=== PATIENT | male | born 1945 | race Caucasian/White ===

== ENCOUNTER 2017-07-26 15:07 | Emergency (ER) | payer OTHER ==
[~2017-07-26] VITALS: Ht 170.2 cm; Wt 76.0 kg
[2017-07-26 15:15] VITALS: BP 129/81; PULSE 71; RESP 16; TEMP 98.8; O2SAT 100
[2017-07-26 15:46] LABS: BLOOD, URINE LARGE (NEG); GLUCOSE,URINE NEG (NEG); KETONE, URINE TRACE mg/dL (NEG); NITRITE,URINE POS (NEG); PH, URINE 6.5 (5.0-8.5); URINE LEUKOCYTE ESTERASE SMALL (NEG)
[2017-07-26] MEDS ORDERED: ALPR0.5T6 PO (15:46)
[2017-07-26] MEDS ORDERED: MIRA50TA PO (15:46)
[2017-07-26] MEDS ORDERED: TELM1TAB2 PO (15:46)
[2017-07-26] MEDS ORDERED: ATOR40TA16 PO (15:46)
[2017-07-26 15:55] LABS: BILIRUBIN, URINE NEG (NEG)
[2017-07-26 16:03] LABS: URINE COLOR BROWN (YELLW/STRAW)
[2017-07-26 16:04] LABS: RBC, URINE INNUM /hpf (0-3); WBC, URINE 15-19 /hpf (0-5)
[2017-07-26 16:05] LABS: AMORPHOUS SEDIMENT, URINE FEW; BACTERIA, URINE FEW /hpf; WHITE BLOOD CELL CLUMPS FEW
[2017-07-26] MEDS ORDERED: CIPR-9 PO (16:08)
--- NOTE | 2017-07-26 16:13 | PD ---
HPI Chief Complaint: Complaint Time Seen by Provider: 15:40 Travel History International Travel<30 days: No Contact w/Intl Traveler<30days: No Traveled to known affect area: No History of Present Illness HPI 72-year-old male that presents to the ED for evaluation of possible urinary infection. Per patient his been having 3 days of polyuria, dysuria and blood in the urine. Per patient he never had this before. No pain on the back or abdomen. Per patient only when he urinates he feels that he has to urinate a lot. Denies any fevers chills or sweats. No other medical issues. Per patient he has urologist [facility] that told him that he had problems with his prostate but currently takes no medications for this. It is any allergies to medication. Has not seen anybody for this. Pain per patient is 3 out of 10 and is burning. PFSH Past Medical History High Cholesterol: Yes Genitourinary: Yes (FREQUENCY, OAB) Hypertension: Yes Influenza Vaccination: Yes Past Surgical History Surgical History: No Previous Surgery Social History Alcohol Use: Yes (DAILY) Tobacco Use: No Substance Use: No Allergies-Medications (Allergen,Severity, Reaction): Coded Allergies: No Known Allergies (Unverified , 07/26/17) Reported Meds & Prescriptions Reported Meds & Active Scripts Active Cipro (Ciprofloxacin HCl) 500 Mg Tab 500 Mg PO BID 10 Days Reported Myrbetriq (Mirabegron) 50 Mg Tab 50 Mg PO DAILY Atorvastatin (Atorvastatin Calcium) 40 Mg Tab 40 Mg PO HS Telmisartan 80 Mg Tab 80 Mg PO DAILY Alprazolam ER 24 HR (Alprazolam) 0.5 Mg Tab 0.5 Mg PO DAILY Take tablet intact, preferably in the morning. Review of Systems Except as stated in HPI: all other systems reviewed are Neg Physical Exam Narrative GENERAL: SKIN: Warm and dry. HEAD: Atraumatic. Normocephalic. EYES: Pupils equal and round. No scleral icterus. No injection or drainage. ENT: No nasal bleeding or discharge. Mucous membranes pink and moist. NECK: Trachea midline. No JVD. CARDIOVASCULAR: Regular rate and rhythm. RESPIRATORY: No accessory muscle use. Clear to auscultation. Breath sounds equal bilaterally. GASTROINTESTINAL: Abdomen soft, non-tender, nondistended. Hepatic and splenic margins not palpable. MUSCULOSKELETAL: Extremities without clubbing, cyanosis, or edema. No obvious deformities. No CVA tenderness. NEUROLOGICAL: Awake and alert. No obvious cranial nerve deficits. Motor grossly within normal limits. Five out of 5 muscle strength in the arms and legs. Normal speech. PSYCHIATRIC: Appropriate mood and affect; insight and judgment normal. Data Data Last Documented VS Vital Signs Date Time Temp Pulse Resp B/P (MAP) Pulse Ox O2 Delivery O2 Flow Rate FiO2 07/26/17 15:15 98.8 71 16 129/81 (97) 100 Orders Orders Urinalysis - C+S If Indicated (07/26/17 15:17) Urine Culture (07/26/17 15:20) Ed Discharge Order (07/26/17 16:10) Labs Laboratory Tests Test 07/26/17 15:20 Urine Collection Type CLEAN CATCH Urine Color BROWN Urine Turbidity TURBID Urine pH 6.5 Urine Specific [place] 1.020 Urine Protein 300 OR GREATER mg/dL Urine Glucose (UA) NEG mg/dL Urine Ketones TRACE mg/dL Urine Occult Blood LARGE Urine Nitrite POS Urine Bilirubin NEG Urine Leukocyte Esterase SMALL Urine RBC INNUM /hpf Urine WBC 15-19 /hpf Urine WBC Clumps FEW Urine Squamous Epithelial Cells 6-8 /hpf Urine Amorphous Sediment FEW Urine Bacteria FEW /hpf Microscopic Urinalysis Comment CULTURE INDICATED Urine Collection Time 1520 MDM Medical Decision Making Medical Screen Exam Complete: Yes Emergency Medical Condition: Yes Medical Record Reviewed: Yes Interpretation(s) Urine did show signs of infection including positive nitrates, leuk trase is trace, white blood cells, bacteria and blood Differential Diagnosis UTI versus cystitis versus hematuria Narrative Course 72-year-old male that presents to the ED for evaluation of possible cystitis. Patient was properly examined and was found to have signs and symptoms consistent with cystitis. Urine was positive for infection. Some blood noted as well. This time I recommend trial of antibiotics. Patient was given Cipro prescription to help with symptoms. Told that if anything worsens to come back to the ED. Motrin or Tylenol for pain as needed. Follow with PCP. See ED worsening symptoms. Diagnosis Primary Impression: Cystitis Patient Instructions: General Instructions Additional Instructions: Take medication as prescribed. Drink plenty of fluids. Motrin or Tylenol for pain. Follow with PCP. See ED worsening symptoms. Med/Other Pt SpecificInfo: Prescription(s) given Scripts Ciprofloxacin (Cipro) 500 Mg Tab 500 MG PO BID for Infection for 10 Days, #20 TAB 0 Refills Prov: Alec Carr MD 07/26/17 Disposition: 01 DISCHARGE HOME Condition: Stable Peña Mercado Jul 26, 2017 16:13
== END 2017-07-26 16:36 | disposition home or self-care (01) ==
LOC: PHED 15:07 → PHEFT 16:36
DX: N30.91 Cystitis, unspecified with hematuria (principal); B96.20 Unspecified Escherichia coli [E. coli] as the cause of diseases classified elsewhere; I10 Essential (primary) hypertension; E78.00 Pure hypercholesterolemia, unspecified; Z87.448 Personal history of other diseases of urinary system
CPT/HCPCS: 81001; 87077; 87086; 87186; 99283